=== PATIENT | female | born 1985 | race Caucasian/White ===

== ENCOUNTER → 2017-09-02 16:19 | Outpatient (CLI) | payer SELFPAY ==
[2017-09-02 18:16] LABS: Cholesterol 219 mg/dL (200); High Density Lipoprotein 59 mg/dL; Triglycerides 69 mg/dL; Very Low Density Lipoprotein 14 mg/dL (5-40)
== END ==
PROVIDERS: Family Provider Family Medicine; PCP Family Medicine; Visit Provider Family Medicine
DX: Z00.00 Encounter for general adult medical examination without abnormal findings (principal)
CPT/HCPCS: 36415; 80061

== ENCOUNTER → 2018-07-02 13:42 | Outpatient (CLI) | payer OTHER, SELFPAY ==
[2018-07-08 07:55] LABS: HPV HC, High Risk Positive (Negative)
[2018-07-08 08:01] LABS: HPV Reflexed? YES, CHARGE PATIENT
== END ==
PROVIDERS: Visit Provider Obstetrics & Gynecology
DX: Z12.4 Encounter for screening for malignant neoplasm of cervix (principal)
CPT/HCPCS: 87624; 88175; G0145

== ENCOUNTER → 2018-11-10 14:42 | Outpatient (CLI) | payer OTHER, SELFPAY ==
[2018-11-10 15:58] LABS: Anion Gap 2 (5-15); BUN 8 mg/dL (7-18); BUN/Creat Ratio 9.5 RATIO (10-20); Calcium,Total 8.7 mg/dL (8.5-10.1); Chloride 108 mmol/L (98-107); Cholesterol 209 mg/dL (200); Creatinine, Serum 0.84 mg/dL (0.55-1.02); EST Glomerular Filtration Rate 84 mL/min (>60); Est Glom Filt Rate - Afr Amer 101 mL/min (>60); Glucose 78 mg/dL (74-106); High Density Lipoprotein 58 mg/dL; Sodium Level 139 mmol/L (136-145); Thyroid Stim Hormone (TSH) 1.04 uIU/mL (0.358-3.74); Triglycerides 101 mg/dL; Very Low Density Lipoprotein 20 mg/dL (5-40)
== END ==
PROVIDERS: Family Provider Family Medicine; PCP Family Medicine; Referring Provider Family Medicine; Visit Provider Family Medicine
DX: Z00.00 Encounter for general adult medical examination without abnormal findings (principal)
CPT/HCPCS: 36415; 80048; 80061; 84443

== ENCOUNTER → 2019-11-11 08:25 | Outpatient (CLI) | payer OTHER, SELFPAY ==
[2019-11-11 09:28] LABS: Progesterone Level 7.27 ng/mL (See Comment); Vitamin D,25 Hydroxy 67.8 ng/mL
[2019-11-11 10:03] LABS: Free T3 2.9 pg/mL (2.18-3.98); T4 Free Direct 0.94 ng/dL (0.76-1.46)
== END ==
PROVIDERS: PCP Family Medicine; Referring Provider Specialist; Visit Provider Specialist
DX: E55.9 Vitamin D deficiency, unspecified (principal); E03.9 Hypothyroidism, unspecified; E28.8 Other ovarian dysfunction
CPT/HCPCS: 36415; 82306; 82670; 84144; 84403; 84439; 84481

== ENCOUNTER 2021-10-15 20:21 | Emergency (ER) | payer OTHER, SELFPAY ==
[2021-10-15 20:23] VITALS: BP 119/84; PULSE 100; RESP 18; TEMP 36.6; O2SAT 96; BMI 37.0
--- NOTE | 2021-10-15 21:24 | EDS_ITS ---
HPI HPI - Fall History of Present Illness Chief Complaint: Fall Informant: patient Occured/Mechanism Occurred: Today Narrative: Patient fell from horse Pain/Injury Location: Face, back, right ankle Pain Location: face, back and lower extremity Quality of Pain: Sharp and Aching Worsened by: Breathing, movement Relieved by: Nothing Associated Symptoms Associated Symptoms: Positive for Loss of consciousness and Amnesia; Negative for Parasthesias and Weakness Length of loss of consciousness: Unknown Narrative Narrative: Patient presents after falling off of her horse tonight. Patient does not remember any of the events at the time of the injury. Patient remembers waking up on the ground and they told her that EMS was called. Patient complains of pain in her face, thoracic spine, and right ankle. Patient describes her pain as sharp and aching. Patient states her pain is worse with movement and with breathing. Patient denies any paresthesias or weakness. Tetanus Immunization: Unknown [facility] Medical History Anxiety Depression Irregular heart beat Home Medications etonogestrel-ethinyl estradiol vag ring VAGINAL 10/15/21 [History Last Taken Unknown] hydrocodone-acetaminophen 1 tab PO Q6H PRN PRN 3 Days #10 tablet 10/15/21 [Rx Last Taken Unknown] venlafaxine [Effexor XR] 150 mg PO QHS 10/15/21 [History Last Taken Unknown] Allergy/AdvReac Type Severity Reaction Status Date / Time clindamycin Allergy Intermediate Hives Verified 02/08/16 13:01 erythromycin base Allergy Intermediate Hives Verified 02/08/16 13:01 Penicillins [PCN] Allergy Intermediate Hives Verified 02/08/16 13:01 Sulfa (Sulfonamide Allergy Intermediate Hives Verified 02/08/16 13:01 Antibiotics) adhesive tape AdvReac Rash Verified 02/08/16 13:01 sertraline [From Zoloft] AdvReac Hives Verified 10/15/21 20:28 Surgical History no surgical history no surgical history Social History Smoking Status: Never smoker ROS ROS ED Constitutional Constitutional ED: Denies chills or fever(s) Eyes Eyes: Denies blurry vision or change in vision ENT ENT ED: Denies rhinorrhea or sore throat Cardiovascular Cardiovascular: Denies chest pain or palpitations Respiratory/Chest Respiratory/Chest: Denies cough or dyspnea Gastrointestinal Gastrointestinal: Reports nausea; Denies vomiting Genitourinary Genitourinary ED: Denies dysuria or hematuria Musculoskeletal Musculoskeletal: Reports back pain and neck pain Integumentary Denies abscess or rash Neurologic Neurologic: Reports headache(s); Denies weakness Allergic/Immunologic Allergic/Immunologic ED: Denies mouth swelling or urticaria EXAM Physical Exam Const Vital Signs: 10/15/21 20:23 10/15/21 20:33 10/15/21 22:33 Temperature 97.9 F Temperature Source Temporal Pulse Rate 100 100 Respiratory Rate 18 18 Respiratory Effort Normal Non-Labored Respiratory Depth Normal Respiratory Pattern Normal Blood Pressure 119/84 H Blood Pressure Mean 95 Pulse Ox 96 99 Oxygen Delivery Method Room Air Room Air Positive well nourished and well developed General Appearance ED: well developed and NAD HEENT Reports normocephalic Eyes PERRL and EOMs intact bilaterally Neck full ROM and supple Chest Wall inspection of chest normal and palpation of chest normal Resp normal respiratory effort and clear to auscultation bilaterally Cardio regular rate and regular rhythm GI non-tender Palpation: soft Extremity Extremity Narrative: There is tenderness over the right ankle. There is some mild edema. There is no ecchymosis. There is no bony crepitance or step-off. There is no deformity noted. Range of motion was limited somewhat in all motions of the right ankle secondary to pain. There is no tenderness over the proximal fibula. There is no tenderness over the fifth metatarsal. Pedal pulses are equal bilateral. Sensation was intact to light touch in all digits. Capillary refill is less than 2 seconds in all digits. Neuro oriented x3, CN's II-XII intact bilaterally, moves all extremities, no focal motor deficits and no sensory deficits noted [place] Coma Scale: document GCS findings Spontaneous Obeys Commands Oriented 15 Sensorium / Orientation: alert Psych mental status grossly normal MDM MDM MDM Narrative Medical decision making narrative: CT scan of the brain was obtained. There is no acute intracranial abnormality. This was interpreted by the radiologist and reviewed by myself. CT scan of the cervical spine was obtained. There is no acute fracture or spondylolisthesis. This was interpreted by the radiologist and reviewed by myself. X-rays of the thoracic spine were obtained. There are 3 views. On my interpretation, there is no acute fracture or spondylolisthesis. There is some mild degenerative changes noted. Radiologist also interpreted the x-rays and agrees. X-rays of the right ankle were obtained. There are 3 views. On my interpretation, there is a small avulsion fracture of the dorsal surface of the talus. There is no other acute fracture noted. There is no dislocation. Radiologist also interpreted the x-rays and agrees. Patient was given an Aircast. Patient was given a dose of [place] here. Patient was given a tetanus booster. Patient was instructed to follow-up with her primary care physician in 5 to 7 days. Patient was given a prescription for a short course of [place] to take as needed for pain. Patient understood and was agreeable with the plan. All questions were answered. Radiography Diagnostic Testing: Clinical Impression(s) from Imaging Studies Brain CT 10/15/21 21:29 IMPRESSION: Normal unenhanced CT scan of the brain. Electronically Signed: Pancho Esparza MD at 22:11 EDT , Cervical Spine CT 10/15/21 21:29 IMPRESSION: Decreased cervical lordosis otherwise normal unenhanced CT examination of the cervical spine. Electronically Signed: Pancho Esparza MD at 22:19 EDT , Thoracic Spine X-Ray 10/15/21 21:29 IMPRESSION: Mild spondylosis. No acute fracture or other significant bony pathology. Electronically Signed: Pancho Esparza MD at 22:27 EDT , Ankle X-Ray 10/15/21 21:52 IMPRESSION: Tiny cortical avulsion fracture of the dorsal surface of the talus with mild separation of fracture fragments Electronically Signed: Pancho Esparza MD at 22:20 EDT , Discharge Plan Triage Chief Complaint: Fall ED Provider: Reyes Tapia Dx/Rx/DC Orders Clinical Impression: Concussion, Acute thoracic myofascial strain, Avulsion fracture of right talus Instructions: ED Concussion, ED Thoracic Spine Strain Prescriptions: New hydrocodone-acetaminophen [hydrocodone-acetaminophen] 1 TABLET tablet 1 tab PO Q6H PRN PRN (Reason: Pain) 3 Days Qty: 10 RF: 0 No Action venlafaxine [Effexor XR] 150 mg capsule,extended release 24hr 150 mg PO QHS RF: 0 etonogestrel-ethinyl estradiol 0.12-0.015 mg/24 hr ring VAGINAL RF: 0 Primary Care Provider: Zak Dillard Referrals: Zak Dillard MD [Primary Care Provider] - 5-7 Days Disposition Disposition: Home, Self Care
--- NOTE | 2021-10-15 21:29 | CT_ITS ---
STUDY: CT BRAIN WITHOUT CONTRAST REASON FOR EXAM: Female, 36 years old. Injury/Pain RADIATION DOSAGE (If Supplied By Facility): CTDIvol = ( 44.99 ) mGy, DLP = ( 779.24 ) mGycm TECHNIQUE: Transaxial CT imaging of the brain was performed without administration of intravenous contrast material. Individualized dose optimization techniques were used for this CT. COMPARISON: No relevant priors. FINDINGS: Normal soft tissue structures. Normal calvarium. Normal size ventricles and extra-axial spaces for the patient''s age. Normal white matter tracts of the cerebral hemispheres. Normal basal ganglia and thalami. Normal brainstem. Normal cerebellum. There is no intracranial hemorrhage. There are no findings of an acute ischemic infarction. Normal visualized paranasal sinuses. CT/Brain/Head without Contrast IMPRESSION: Normal unenhanced CT scan of the brain. Electronically Signed: Pancho Esparza MD at 22:11 EDT ,
--- NOTE | 2021-10-15 21:29 | RAD_ITS ---
STUDY: X-RAY - THORACIC SPINE REASON FOR EXAM: Female, 36 years old. Injury/Pain TECHNIQUE: 3 view(s) of the thoracic spine were obtained. COMPARISON: None. FINDINGS: Normal kyphosis of the thoracic spine. There is no substantial scoliosis. No evidence for acute fracture or subluxation. Disc space heights are well-maintained although there is minor multilevel endplate spurring The soft tissue structures are unremarkable. RAD/Thoracic Spine 3 Views IMPRESSION: Mild spondylosis. No acute fracture or other significant bony pathology. Electronically Signed: Pancho Esparza MD at 22:27 EDT ,
--- NOTE | 2021-10-15 21:29 | CT_ITS ---
STUDY: CT CERVICAL SPINE WITHOUT CONTRAST REASON FOR EXAM: Female, 36 years old. Injury/Pain RADIATION DOSAGE (If Supplied By Facility): CTDIvol = ( 23.93 ) mGy, DLP = ( 500.40 ) mGycm TECHNIQUE: High resolution transaxial imaging was performed without contrast material. Sagittal and coronal images were reconstructed. Individualized dose optimization techniques were used for this CT. COMPARISON: None FINDINGS: Normal craniovertebral junction. Normal anterior atlantoaxial articulation. Normal odontoid process. Decreased cervical lordosis. Normal vertebral bodies and posterior osseous elements. C2-3: Normal endplates. Normal disc height and morphology. Normal central canal and intervertebral neuroforamina. C3-4: Normal endplates. Normal disc height and morphology. Normal central canal and intervertebral neuroforamina. C4-5: Normal endplates. Normal disc height and morphology. Normal central canal and intervertebral neuroforamina. C5-6: Normal endplates. Normal disc height and morphology. Normal central canal and intervertebral neuroforamina. C6-7: Normal endplates. Normal disc height and morphology. Normal central canal and intervertebral neuroforamina. C7-T1: Normal endplates. Normal disc height and morphology. Normal central canal and intervertebral neuroforamina. Normal visualized soft tissue structures. CT/Spine Cervical without Contras IMPRESSION: Decreased cervical lordosis otherwise normal unenhanced CT examination of the cervical spine. Electronically Signed: Pancho Esparza MD at 22:19 EDT ,
[2021-10-15] MEDS: HYDROcodone Bitartrate/Apap 5/325 Tablet PO (21:34)
[2021-10-15] MEDS: Diphth,Pertuss(Acell),Tet Vac 0.5 ML Vial IM (21:35)
--- NOTE | 2021-10-15 21:52 | RAD_ITS ---
STUDY: X-RAY - RIGHT ANKLE REASON FOR EXAM: Female, 36 years old. Injury/Pain TECHNIQUE: 3 view(s) of the ankle. COMPARISON: None. FINDINGS: Normal visualized distal tibia and fibula. Normal medial and lateral malleoli. Normal tibiotalar articulation and ankle mortise. Normal visualized and calcaneus. Tiny cortical avulsion fracture of the dorsal surface of the talus with mild separation of fracture fragments The visualized subtalar, talonavicular, calcaneocuboid and tarsal articulations are normal. The soft tissue structures are unremarkable. RAD/Ankle min 3 Views IMPRESSION: Tiny cortical avulsion fracture of the dorsal surface of the talus with mild separation of fracture fragments Electronically Signed: Pancho Esparza MD at 22:20 EDT ,
[2021-10-15 22:33] VITALS: PULSE 100; RESP 18; O2SAT 99
[2021-10-15 23:06] VITALS: BP 116/72; PULSE 100; RESP 18
== END 2021-10-15 23:07 | disposition home or self-care (01) ==
PROVIDERS: Emergency Provider Emergency Medicine; PCP Family Medicine; Visit Provider Emergency Medicine
DX: S06.0X0A Concussion without loss of consciousness, initial encounter (principal); S29.019A Strain of muscle and tendon of unspecified wall of thorax, initial encounter; S92.151A Displaced avulsion fracture (chip fracture) of right talus, initial encounter for closed fracture; F41.9 Anxiety disorder, unspecified; F32.A Depression, unspecified; W19.XXXA Unspecified fall, initial encounter; Z79.899 Other long term (current) drug therapy; Z23 Encounter for immunization
CPT/HCPCS: 70450; 72072; 72125; 73610; 90471; 90715; 99285

== ENCOUNTER → 2022-08-13 | Outpatient (CLI) | payer OTHER, SELFPAY ==
[2022-08-13 17:47] LABS: Absolute Lymphocyte Count 3.02 X10^3/uL (0.83-4.51); Absolute Neutrophil Count 4.2 X10^3/uL (2.0-7.7); Basophil# 0.07 X10^3/uL; Basophil% 0.8 % (0-1); Eosinophil# 0.29 X10^3/uL; Eosinophils% 3.4 % (0-5); Hematocrit 44.6 % (37-47); Hemoglobin 14.4 g/dL (12.0-15.0); Lymphocyte # 3.02 X10^3/ul (0.83-4.51); Lymphocyte % 35.3 % (19-41); Mean Corp Hgb Conc 32.3 g/dL (32-36); Mean Corpuscular Hgb 29.9 pg (27.0-32.0); Mean Corpuscular Volume 92.7 fL (81-99); Mean Platelet Vol. 8.8 fl (6.2-12.0); Monocyte# 0.91 X10^3/uL; Monocyte% 10.6 % (0-10); NRBC Flagged by Analyzer 0 % (0-5); Neutrophil # 4.23 X10^3/uL (2.7-7.7); Neutrophil % 49.5 % (47-70); Platelet Count 368 K/mm3 (150-450); RBC Distribution Width CV 13.1 % (11.6-14.6); RBC Distribution Width SD 44.2 fl (35.1-43.9); Red Blood Count 4.81 M/mm3 (4.2-5.4); White Blood Count 8.6 K/mm3 (4.4-11.0)
[2022-08-13 18:59] LABS: Anion Gap 11 (5-15); BUN 11 mg/dL (7-18); BUN/Creat Ratio 14.1 RATIO (10-20); Chloride 107 mmol/L (98-107); Creatinine, Serum 0.78 mg/dL (0.55-1.02); EST Glomerular Filtration Rate 89 mL/min (>60); Est Glom Filt Rate - Afr Amer 108 mL/min (>60); Free T3 2.8 pg/mL (2.18-3.98); Glucose 104 mg/dL (74-106); Potassium 3.8 mmol/L (3.5-5.1); Sodium Level 139 mmol/L (136-145); Thyroid Stim Hormone (TSH) 1.84 uIU/mL (0.358-3.74)
== END | disposition home or self-care (01) ==
LOC: MFPLAB 14:50
PROVIDERS: PCP Family Medicine; Referring Provider Family Medicine; Visit Provider Family Medicine
DX: R63.5 Abnormal weight gain (principal)
CPT/HCPCS: 36415; 80048; 84439; 84443; 84481; 85025

== ENCOUNTER → 2022-08-25 | Outpatient (CLI) | payer OTHER, SELFPAY ==
--- NOTE | 2022-08-25 15:21 | US_ITS ---
STUDY: THYROID ULTRASOUND REASON FOR EXAM: Female, 36 years old. THYROID NODULE TECHNIQUE: Ultrasound evaluation of the thyroid was performed with real-time and static arce-scale imaging. COMPARISON: None. FINDINGS: RIGHT LOBE: The right lobe of the thyroid gland measures 3.9 cm x 1.8 cm x 1.3 cm. There is a heterogeneous echotexture. There is a 1 cm x 0.9 cm x 0.8 cm septated cyst along the lower pole of the right lobe of the thyroid. LEFT LOBE: The left lobe of the thyroid gland measures 4.3 cm x 1.3 cm x 1.4 cm. There is a heterogeneous echotexture. There are no demonstrated solid, cystic or complex lesions. ISTHMUS: The isthmus measures 1.9 mm. The regional lymph nodes are normal. US/Thyroid IMPRESSION: Heterogeneous appearance of the thyroid lobes. 1 cm x 0.9 cm x 0.8 cm septated cyst in the lower pole of the right lobe of the thyroid. Electronically Signed: New Almanzar MD at 9:55 EDT ,
== END | disposition home or self-care (01) ==
LOC: US 15:19
PROVIDERS: PCP Family Medicine; Referring Provider Family Medicine; Visit Provider Family Medicine
DX: E04.1 Nontoxic single thyroid nodule (principal)
CPT/HCPCS: 76536

== ENCOUNTER → 2022-08-27 | Outpatient (CLI) | payer OTHER, SELFPAY ==
[2022-08-27 11:30] LABS: Follicle Stimulating Hormone 3.1 mIU/mL; Luteinizing Hormone 3.1 mIU/mL
[2022-08-31 11:17] LABS: Estrogen, Total, Serum 274 pg/mL (.)
== END | disposition home or self-care (01) ==
LOC: MFPLAB 09:33
PROVIDERS: PCP Family Medicine; Referring Provider Family Medicine; Visit Provider Family Medicine
DX: R63.5 Abnormal weight gain (principal)
CPT/HCPCS: 36415; 82533; 82672; 83001; 83002

== ENCOUNTER → 2022-12-19 | Outpatient (CLI) | payer OTHER, SELFPAY ==
[2022-12-19 15:13] LABS: Absolute Lymphocyte Count 2.58 X10^3/uL (0.83-4.51); Absolute Neutrophil Count 4.4 X10^3/uL (2.0-7.7); Basophil# 0.06 X10^3/uL; Basophil% 0.7 % (0-1); Eosinophil# 0.26 X10^3/uL; Eosinophils% 3.2 % (0-5); Hematocrit 44.8 % (37-47); Hemoglobin 14.2 g/dL (12.0-15.0); Lymphocyte # 2.58 X10^3/ul (0.83-4.51); Lymphocyte % 32.1 % (19-41); Mean Corp Hgb Conc 31.7 g/dL (32-36); Mean Corpuscular Hgb 29.3 pg (27.0-32.0); Mean Corpuscular Volume 92.6 fL (81-99); Mean Platelet Vol. 8.9 fl (6.2-12.0); Monocyte% 8.7 % (0-10); NRBC Flagged by Analyzer 0 % (0-5); Neutrophil % 54.8 % (47-70); Platelet Count 384 K/mm3 (150-450); RBC Distribution Width CV 13.1 % (11.6-14.6); RBC Distribution Width SD 44.3 fl (35.1-43.9); Red Blood Count 4.84 M/mm3 (4.2-5.4)
[2022-12-19 15:39] LABS: Anion Gap 5 (5-15); BUN 8 mg/dL (7-18); BUN/Creat Ratio 10.9 RATIO (10-20); Calcium,Total 8.8 mg/dL (8.5-10.1); Chloride 109 mmol/L (98-107); Creatinine, Serum 0.73 mg/dL (0.55-1.02); EST Glomerular Filtration Rate 96 mL/min (>60); Est Glom Filt Rate - Afr Amer 116 mL/min (>60); Glucose 108 mg/dL (74-106); Potassium 3.9 mmol/L (3.5-5.1); Sodium Level 140 mmol/L (136-145)
[2022-12-22 16:14] LABS: ANTINUCLEAR ANTIBODIES DIRECT Negative (Negative)
== END | disposition home or self-care (01) ==
LOC: MFPLAB 12:30
PROVIDERS: PCP Family Medicine; Visit Provider Family Medicine
DX: M35.9 Systemic involvement of connective tissue, unspecified (principal); I49.9 Cardiac arrhythmia, unspecified
CPT/HCPCS: 36415; 80048; 85025; 86038; 86225; 86235

== ENCOUNTER → 2024-04-20 | Outpatient (CLI) | payer BC, SELFPAY ==
[2024-04-20 12:18] LABS: Erythrocyte Sedimentation Rate 9 mm/hr (0-30)
[2024-04-20 12:53] LABS: Hemoglobin A1c 5.4 % (3.8-5.6)
[2024-04-21 13:08] LABS: ANTINUCLEAR ANTIBODIES DIRECT Negative (Negative); Anti-dsDNA Ab 1 IU/mL (0-9)
== END | disposition home or self-care (01) ==
LOC: MFPLAB 10:37
PROVIDERS: PCP Family Medicine; Visit Provider Family Medicine
DX: R79.82 Elevated C-reactive protein (CRP) (principal); R73.09 Other abnormal glucose
CPT/HCPCS: 36415; 83036; 85652; 86038; 86225

== ENCOUNTER → 2025-04-28 | Outpatient (CLI) | payer SELFPAY ==
[2025-04-28 12:48] LABS: Anion Gap 11 (5-15); BUN 9 mg/dL (4-19); BUN/Creat Ratio 12.4 RATIO (10-20); Calcium,Total 9.1 mg/dL (7.6-11.0); Carbon Dioxide 23.5 mmol/L (21.0-32.0); Chloride 105 mmol/L (98-108); Cholesterol 236 mg/dL (<=200); Glucose 94 mg/dL (70-99); Low Density Lipoprotein Calc. 148 mg/dL; Potassium 4.1 mmol/L (3.3-5.1); Triglycerides 212 mg/dL; Very Low Density Lipoprotein 42 mg/dL (5-40); cholesterol:hdl ratio screen 4.80
== END | disposition home or self-care (01) ==
PROVIDERS: PCP Family Medicine; Referring Provider Family Medicine; Visit Provider Family Medicine
DX: Z00.00 Encounter for general adult medical examination without abnormal findings (principal); E66.9 Obesity, unspecified
CPT/HCPCS: 36415; 80048; 80061; 84443